=== PATIENT | male | born 1985 | race Hispanic/Latino ===

== ENCOUNTER 2020-10-23 08:12 | Emergency (ER) | payer OTHER, BC ==
[2020-10-23 08:18] VITALS: BP 124/94
[2020-10-23] MEDS ORDERED: IBUPROFEN 800 MG TAB PO ONE (08:26)
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
--- NOTE | 2020-10-23 09:45 | Cat Scan Report ---
CT LUMBAR SPINE WITHOUT CONTRAST INDICATION: pain/w walking. TECHNIQUE: Axial imaging performed through the lumbar spine without the use of contrast. Sagittal a nd coronal reconstructed images were also reviewed. All CT scans at this location are performed usin CT dose reduction for CYNRA by means of automated exposure control. COMPARISON: None FINDINGS: Alignment: Spinal alignment is normal. Bones: There is no acute osseous abnormality. No significant degenerative changes are present. Vis ualized SI joints are unremarkable. Soft tissues: 1 or 2 tiny calyceal stones measuring up to 2 mm are identified in the visualized righ t kidney. No obvious hydronephrosis. IMPRESSION: No significant abnormality in the lumbar spine. Right nephrolithiasis, nonobstructing. Signer Name: Neeraj Gutierrez Jr, MD Signed: 10/23/2020 9:40 AM Workstation Name: [id number]
== END 2020-10-23 11:03 | disposition home or self-care (01) ==
LOC: ED 08:12
DX: S39.012A Strain of muscle, fascia and tendon of lower back, initial encounter (principal); Z98.890 Other specified postprocedural states; Z79.1 Long term (current) use of non-steroidal anti-inflammatories (NSAID); Z79.899 Other long term (current) drug therapy; V49.49XA Driver injured in collision with other motor vehicles in traffic accident, initial encounter; Y93.89 Activity, other specified; Y92.89 Other specified places as the place of occurrence of the external cause; Y99.8 Other external cause status
CPT/HCPCS: 72131